=== PATIENT | male | born 2000 | race Caucasian/White ===

== ENCOUNTER 2021-07-01 16:30 | Emergency (ER) | payer OTHER ==
[2021-07-01 16:38] VITALS: TEMP 98
[2021-07-01] MEDS ORDERED: KETOROLAC 15 MG/ML 1 ML VIAL IM STA (16:49)
--- NOTE | 2021-07-01 17:32 | XR ---
Result: History: Pain. Comparison: None available. Technique: 3 views of the right foot. Findings: The bone mineralization is appropriate for age. No acute fracture or dislocation is seen. The visualized osseous structures are in anatomic alignmen t. The joint spaces are preserved. There is soft tissue edema with emphysema about the great toe. No radiopaque foreign body. Impression: Soft tissue injury about the great toe without acute osseous abnormality.
--- NOTE | 2021-07-01 17:41 | ED ---
Lower Extremity Injury HPI - General Chief Complaint: Extremity Injury, Lower Stated Complaint: Ripped off toenail Time Seen by Provider: 07/01/21 16:40 Source: patient, RN notes reviewed Mode of arrival: wheelchair Limitations: no limitations - History of Present Illness Initial Comments: Patient is a 21-year-old male that presents to the emergency department complaining of right great toe pain after getting it caught in a scissor lift at work. He notes that his foot was stuck he tried pulling his foot out which she thinks caused the toenail throughout. Patient was in 3 out of 10 pain with no other complaints or issues at this time. He noted that his toe was not acutely tender or painful. He came in to get evaluated for any possible fractures. He was otherwise well-appearing 21-year-old male in no apparent distress or pain. She denied any chest pain shortness of breath headache nausea vomiting diarrhea constipation fever fatigue chills. - Related Data Allergies Allergy/AdvReac Type Severity Reaction Status Date / Time No Known Allergies Allergy Verified 07/01/21 16:33 Review of Systems ROS Statement: Those systems with pertinent positive or pertinent negative responses have been documented in the HPI. ROS Other: All systems not noted in ROS Statement are negative. Past Medical History Past Medical History: No Reported History History of Any Multi-Drug Resistant Organisms: None Reported Past Surgical History: No Surgical Hx Reported Past Psychological History: No Psychological Hx Reported Smoking Status: Vaper Past Alcohol Use History: Rare Past Drug Use History: None Reported General Exam Limitations: no limitations General appearance: alert, in no apparent distress Head exam: Present: atraumatic, normocephalic, normal inspection Eye exam: Present: normal appearance, PERRL, EOMI. Absent: scleral icterus, conjunctival injection, periorbital swelling Neck exam: Present: normal inspection Respiratory exam: Present: normal lung sounds bilaterally. Absent: respiratory distress, wheezes, rales, rhonchi, stridor Cardiovascular Exam: Present: regular rate, normal rhythm, normal heart sounds. Absent: systolic murmur, diastolic murmur, rubs, gallop, clicks Extremities exam: Present: normal inspection, full ROM, normal capillary refill. Absent: tenderness, pedal edema, joint swelling, calf tenderness Right Foot/Toe exam: Present: normal inspection, full ROM, nail avulsion (Right great toenail). Absent: tenderness, swelling Neurological exam: Present: alert, oriented X3 Psychiatric exam: Present: normal affect, normal mood Skin exam: Present: warm, dry, intact, normal color. Absent: rash Course Vital Signs 07/01/21 16:35 Temperature 98 F Pulse Rate 80 Respiratory 18 Rate Blood Pressure 130/78 O2 Sat by Pulse 98 Oximetry Medical Decision Making - Medical Decision Making 21-year-old male complaining of right great toe pain after getting stuck in a single live. On examination right great toenail.. 15 mg of Toradol, x-ray of the right foot ordered. X-ray shows no acute abnormalities. Case discussed with Dr. Anderson, patient can discharge home with follow-up to primary care and contact center agent. - Radiology Data Radiology results: report reviewed, image reviewed X-ray of the right foot: Soft tissue injury about the great toe without acute osseous abnormality. Disposition Clinical Impression: Avulsed toenail Disposition: HOME SELF-CARE Condition: Stable Instructions (If sedation given, give patient instructions): Nail Avulsion (ED) Additional Instructions: Please return to the Emergency Department if symptoms worsen or any other concerns. Take Tylenol Motrin as needed for pain. Is patient prescribed a controlled substance at d/c from ED?: No Referrals: None,Stated [Primary Care Provider] - 1-2 days Time of Disposition: 17:44
[2021-07-01 18:02] VITALS: BP 124/64; PULSE 67; RESP 16
== END 2021-07-01 18:02 | disposition home or self-care (01) ==
LOC: EC 16:30
DX: S91.202A Unspecified open wound of left great toe with damage to nail, initial encounter (principal); F17.290 Nicotine dependence, other tobacco product, uncomplicated; W23.1XXA Caught, crushed, jammed, or pinched between stationary objects, initial encounter
CPT/HCPCS: 99283; 96372; 73630; J1885